=== PATIENT | female | born 1995 | race Caucasian/White ===

== ENCOUNTER 2020-12-02 05:46 | Emergency (ER) | payer BC ==
[2020-12-02] MEDS ORDERED: IBUPROFEN 400 MG TAB ONE (06:34)
[2020-12-02] MEDS ORDERED: ONDANSETRON 4 MG/2 ML VIAL ONE (06:54)
[2020-12-02 07:01] LABS: Hematocrit 40.6 % (36.0-45.0); RBC Red Blood Cell Count 4.54 M/uL (3.86-4.86)
[2020-12-02 07:02] LABS: Absolute Lymphocytes (CBC) 0.9 K/uL (0.7-4.9); Basophils % 0.3 % (0-1.3); Lymphocytes % 8.8 % (15.3-44.8); MPV 7.3 fL (7.6-11.3)
[2020-12-02 07:14] LABS: ALT/SGPT 51 U/L (12-78); AST/SGOT 20 U/L (15-37); Albumin 3.9 g/dL (3.4-5.0); Alkaline Phosphatase 75 U/L (45-117); BUN Blood Urea Nitrogen 7 mg/dL (7-18); Bicarbonate 25 mmol/L (21-32); Bilirubin Direct 0.1 mg/dL (0-0.2); Bilirubin Total 0.7 mg/dL (0.2-1.0); C-Reactive Protein 8.38 mg/L (<3.00); Ferritin 162.8 ng/mL (8-388); Glucose Level 125 mg/dL (74-106); Lipase 93 U/L (73-393); Potassium 3.6 mmol/L (3.5-5.1); Protein, Total 7.6 g/dL (6.4-8.2); Sodium Level 136 mmol/L (136-145); Troponin (Emerg Dept Use Only) < 0.02 ng/mL (0.0-0.045)
--- NOTE | 2020-12-02 07:15 | RAD REPORT ---
EXAM DESCRIPTION: RAD - Chest Single View - 12/02/2020 6:18 am CLINICAL HISTORY: DYSPNEA COMPARISON: CHEST SINGLE VIEW dated 05/06/2013 FINDINGS: No evidence of edema or pneumonia. The heart size is within normal limits.No acute osseous abnormality. No significant pleural effusions or pneumothorax. IMPRESSION: No acute cardiopulmonary disease.
[2020-12-02 07:53] LABS: SARS-COV-2 RT PCR NEGATIVE (NEGATIVE)
[2020-12-02 07:57] LABS: Protime INR 1.06
[2020-12-02 08:32] LABS: Urine Blood Negative (Negative); Urine Glucose Negative (Negative); Urine Protein Negative (Negative); Urine Specific Gravity 1.015 (1.005-1.030)
[2020-12-02 08:59] LABS: Urine Specific Gravity/Preg 1.015 (1.005-1.030)
--- NOTE | 2020-12-02 09:05 | RAD REPORT ---
EXAM DESCRIPTION: CT - Chest For Pe Angio - 12/02/2020 8:56 am CLINICAL HISTORY: DYSPNEA COMPARISON: No comparisons FINDINGS: Chest Wall: No suspicious thyroid nodules or pathologic lymphadenopathy. Lungs: No acute abnormality. Pleura: No significant effusions or pneumothorax. Mediastinum/beni: No pathologic lymphadenopathy. Pulmonary arteries/Aorta: No filling defect identified. No aortic aneurysm. Heart: No significant pericardial effusion. Normal heart size. Upper abdomen: Hepatic steatosis. Bones: No acute abnormality. IMPRESSION: Negative for pulmonary embolism. No acute findings within the chest.
--- NOTE | 2020-12-02 09:17 | EDPHYS ---
Physician Documentation [facility] Name: Ade Galeas Age: 24 yrs Sex: Female : 1995 Arrival Date: 12/02/2020 Time: 05:46 Bed Treatment Private MD: ED Physician Claudio Romero HPI: 12/02 06:07 This 24 yrs old Female presents to ER via Ambulatory with complaints of kb Breathing Difficulty. 06:07 The patient has not experienced similar symptoms in the past. The patient has not kb recently seen a physician. 06:08 The patient or guardian reports cough, that is intermittent, described as mild, kb difficulty breathing, flu symptoms, low-grade fever. Onset: The symptoms/episode began/occurred this morning, at 04:00. Severity of symptoms: At their worst the symptoms were moderate, in the emergency department the symptoms are unchanged. Modifying factors: The symptoms are alleviated by nothing, the symptoms are aggravated by nothing. Associated signs and symptoms: Pertinent positives: fever, Pertinent negatives: chest pain, diarrhea, ear ache, nausea, rhinorrhea, sore throat, vomiting. 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 - Social history:: Smoking status: Patient denies any tobacco usage or history of. ROS: 06:06 Cardiovascular: Negative for chest pain, palpitations, and edema. kb 06:06 Constitutional: Positive for body aches, chills, malaise. 06:06 Respiratory: Positive for cough, dyspnea on exertion, shortness of breath, Negative for hemoptysis, orthopnea, pleurisy, sputum production, wheezing. 06:06 Neuro: Positive for headache. 06:06 All other systems are negative. Exam: 06:06 Constitutional: This is a well developed, well nourished patient who is awake, alert, kb and in no acute distress. Head/Face: Normocephalic, atraumatic. ENT: Moist Mucous membranes Cardiovascular: Regular rate and rhythm with a normal S1 and S2. No gallops, murmurs, or rubs. No pulse deficits. Skin: Warm, dry with normal turgor. Normal color. MS/ Extremity: Pulses equal, no cyanosis. Neurovascular intact. Full, normal range of motion. Neuro: Awake and alert, GCS 15, oriented to person, place, time, and situation. Moves all extremities. Normal gait. Psych: Awake, alert, with orientation to person, place and time. Behavior, mood, and affect are within normal limits. 06:06 Respiratory: mild respiratory distress is noted, Respirations: tachypnea, Breath sounds: are clear throughout. Vital Signs: 06:04 BP 145 / 85; Pulse 144; Resp 22; Temp 102.4(TE); Pulse Ox 100% on R/A; Weight 127.01 kg lp1 (R); Height 5 ft. 5 in. (165.10 cm); 06:05 Temp 102.5(O); lp1 08:05 BP 134 / 75; Pulse 112; Resp 20 S; Temp 100.6(O); Pulse Ox 98% on R/A; aa5 09:41 Pulse 110; Resp 18 S; Temp 98.5(O); Pulse Ox 99% on R/A; aa5 06:04 Body Mass Index 46.59 (127.01 kg, 165.10 cm) lp1 MDM: 06:04 Patient medically screened. 06:07 Data reviewed: vital signs, nurses notes. Data interpreted: Pulse oximetry: on room air kb is 100 %. Interpretation: normal. 09:16 Counseling: I had a detailed discussion with the patient and/or guardian regarding: the kb historical points, exam findings, and any diagnostic results supporting the discharge/admit diagnosis, lab results, radiology results, the need for outpatient follow up, a family practitioner, to return to the emergency department if symptoms worsen or persist or if there are any questions or concerns that arise at home. 12/02 06:06 Order name: COVID-19 : Document "Date of Symptom Onset" if Symptomatic. 12/02 06:06 Order name: BMP kb 12/02 06:06 Order name: C-Reactive Protein 12/02 06:06 Order name: CBC with Diff 12/02 06:06 Order name: D-Dimer 12/02 06:06 Order name: Ferritin kb 12/02 06:06 Order name: Flu kb 12/02 06:06 Order name: LFT's kb 12/02 06:06 Order name: Lactate kb 12/02 06:06 Order name: Lipase kb 12/02 06:06 Order name: PT-INR; Complete Time: 08:03 kb 12/02 06:06 Order name: Procalcitonin; Complete Time: 07:50 kb 12/02 06:06 Order name: Ptt, Activated; Complete Time: 08:03 kb 12/02 06:06 Order name: Troponin (emerg Dept Use Only); Complete Time: 07:25 kb 12/02 06:06 Order name: Chest Single View XRAY; Complete Time: 07:25 kb 12/02 06:06 Order name: Basic Metabolic Panel; Complete Time: 07:25 EDMS 12/02 06:06 Order name: C-Reactive Protein; Complete Time: 07:25 EDMS 12/02 06:06 Order name: CBC with Automated Diff; Complete Time: 07:31 EDMS 12/02 06:06 Order name: D-Dimer; Complete Time: 08:03 EDMS 12/02 06:06 Order name: Ferritin; Complete Time: 07:25 EDMS 12/02 06:06 Order name: Liver (Hepatic) Function; Complete Time: 07:25 EDMS 12/02 06:07 Order name: Lactate; Complete Time: 07:25 EDMS 12/02 06:07 Order name: Lipase; Complete Time: 07:25 EDMS 12/02 07:53 Order name: COVID-19/FLU A+B; Complete Time: 07:54 EDMS 12/02 08:03 Order name: CT Chest For PE Angio; Complete Time: 09:10 kb 12/02 08:31 Order name: Urine Dipstick-Ancillary; Complete Time: 08:40 EDMS 12/02 08:32 Order name: Urine --Ancillary (enter results); Complete Time: 09:10 aa5 12/02 06:06 Order name: EKG; Complete Time: 06:07 kb 12/02 06:06 Order name: Droplet/Contact Precautions; Complete Time: 06:09 kb 12/02 06:06 Order name: EKG - Nurse/Tech; Complete Time: 08:32 kb 12/02 06:06 Order name: IV Start; Complete Time: 06:30 kb 12/02 06:06 Order name: Labs collected and sent; Complete Time: 06:42 kb 12/02 06:06 Order name: O2 Per Protocol; Complete Time: 06:30 kb 12/02 06:06 Order name: O2 Sat Monitoring; Complete Time: 06:30 kb 12/02 07:32 Order name: Vital Signs; Complete Time: 08:07 kb 12/02 08:32 Order name: Urine Test (obtain specimen); Complete Time: 08:32 aa5 Administered Medications: 06:10 Drug: Ibuprofen 800 mg Route: PO; lp1 06:40 Drug: Zofran (Ondansetron) 4 mg Route: IVP; Site: left antecubital; lp1 Disposition: 12/03 07:11 Co-signature as Attending Physician, Claudio Romero MD I agree with the assessment and josh plan of care. Disposition Summary: 12/02/20 09:16 Discharge Ordered Location: Home kb Condition: Stable kb Diagnosis - Coronavirus infection, unspecified kb Followup: kb - With: Emergency Department - When: As needed - Reason: Worsening of condition Followup: kb - With: Private Physician - When: 2 - 3 days - Reason: Recheck today's complaints, Continuance of care, Re-evaluation by your physician Discharge Instructions: - Discharge Summary Sheet kb - Viral Respiratory Infection, [id number] kb - COVID-19 kb Forms: - Medication Reconciliation Form kb - Thank You Letter kb - Work release form kb - Antibiotic Education kb - Prescription Opioid Use kb Signatures: Dispatcher [employer] EDRI Lynn Chandra, WHITING CAN WORKER-C WHITING CAN WORKER-Claudio Fair MD MD cha Calderon, Audri, RN RN aa5 Sophy Busby, RN RN lp1 Corrections: (The following items were deleted from the chart) 12/02 07:03 06:06 CORONAVIRUS ordered. EDMS EDMS 07:03 06:06 Influenza Screen (A ordered. EDMS EDMS 08:32 06:06 Crawford ordered. kb aa5
--- NOTE | 2020-12-02 09:17 | ER ---
Nurse's Notes [facility] Name: Ade Galeas Age: 24 yrs Sex: Female : 1995 Arrival Date: 12/02/2020 Time: 05:46 Bed Treatment Private MD: Diagnosis: Coronavirus infection, unspecified Presentation: 12/02 06:01 Chief complaint: Patient states: At 0400 this morning, I started shaking lp1 uncontrollably, at work; Reports difficulty breathing, reports pain on breathing. Coronavirus screen: Client denies travel out of the [place] in the last 14 days. chills, cough unrelated to allergies, fatigue, fever, headache, shortness of breath. Ebola Screen: No symptoms or risks identified at this time. Risk Assessment: Do you want to hurt yourself or someone else? Patient reports no desire to harm self or others. Onset of symptoms was December 02, 2020 at 04:00. 06:01 Method Of Arrival: Ambulatory lp1 06:01 Acuity: [place] 3 lp1 06:04 Initial Sepsis Screen: Does the patient meet any 2 criteria? Temp <36.0*C (96.8*F)) or lp1 > 38.3*C (100.9*F). HR > 90 bpm. Does the patient have a suspected source of infection? Yes: Productive cough/pneumonia. Triage Assessment: 06:00 Respiratory: Reports shortness of breath pain with respiration. 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 - Social history:: Smoking status: Patient denies any tobacco usage or history of. Screenin:04 Abuse screen: Denies threats or abuse. Denies injuries from another. Nutritional lp1 screening: No deficits noted. Tuberculosis screening: No symptoms or risk factors identified. Fall Risk None identified. Assessment: 06:00 General: Appears ill, Behavior is appropriate for age. Pain: Complains of pain in chest lp1 Aggravated by on respirations. Neuro: Level of Consciousness is awake, alert, obeys commands, Oriented to person, place, time, situation. Cardiovascular: Patient's skin is warm and dry. Respiratory: Airway is patent Trachea midline Respiratory effort is even, Breath sounds are clear bilaterally. the patient has mild shortness of breath. GI: No signs and/or symptoms were reported involving the gastrointestinal system. : No signs and/or symptoms were reported regarding the genitourinary system. EENT: No signs and/or symptoms were reported regarding the EENT system. Derm: Skin is intact, Skin is dry, Skin is normal. Musculoskeletal: No deficits noted. 06:35 Reassessment: Verbal order from Provider Zofran 4mg IV now; Patient currently vomiting. lp1 08:05 Reassessment: Patient is alert, oriented x 3, equal unlabored respirations, skin aa5 warm/dry/pink. 09:40 Reassessment: Patient is alert, oriented x 3, equal unlabored respirations, skin aa5 warm/dry/pink. Vital Signs: 06:04 BP 145 / 85; Pulse 144; Resp 22; Temp 102.4(TE); Pulse Ox 100% on R/A; Weight 127.01 kg lp1 (R); Height 5 ft. 5 in. (165.10 cm); 06:05 Temp 102.5(O); lp1 08:05 BP 134 / 75; Pulse 112; Resp 20 S; Temp 100.6(O); Pulse Ox 98% on R/A; aa5 09:41 Pulse 110; Resp 18 S; Temp 98.5(O); Pulse Ox 99% on R/A; aa5 06:04 Body Mass Index 46.59 (127.01 kg, 165.10 cm) lp1 ED Course: 05:46 Patient arrived in ED. bp1 06:03 Triage completed. lp1 06:03 Arm band placed on right wrist. lp1 06:04 Lynn Chandra FNP-C [facility]. kb 06:04 Claudio Romero MD is Attending Physician. kb 06:06 Sophy Busby, JEMMA is Primary Nurse. lp1 06:18 Chest Single View XRAY In Process Unspecified. EDMS 06:25 Inserted saline lock: 20 gauge in left antecubital area, using aseptic technique. Blood lp1 collected. 06:42 COVID swab sent to lab. lp1 06:47 Patient has correct armband on for positive identification. lp1 08:56 CT Chest For PE Angio In Process Unspecified. EDMS 09:40 No provider procedures requiring assistance completed. IV discontinued, intact, aa5 bleeding controlled, No redness/swelling at site. Pressure dressing applied. Administered Medications: 06:10 Drug: Ibuprofen 800 mg Route: PO; lp1 06:40 Drug: Zofran (Ondansetron) 4 mg Route: IVP; Site: left antecubital; lp1 Outcome: 09:16 Discharge ordered by . kb 09:40 Discharged to home ambulatory. aa5 09:40 Condition: stable 09:40 Discharge instructions given to patient, Instructed on discharge instructions, follow up and referral plans. medication usage, Demonstrated understanding of instructions, follow-up care, medications, Prescriptions given X 2. 09:42 Patient left the ED. aa5 Signatures: Dispatcher [employer] EDDC Lynn Chandra, VANESSA-C GRISTMILL OPERATOR-Kirstie Connors, RN RN aa5 Sophy Busby, RN RN lp1 Nilam Mack bp1 Corrections: (The following items were deleted from the chart) 06:47 06:00 Neuro: Level of Consciousness is awake, alert, obeys commands, Oriented to lp1 person, place, time, situation, lp1 06:47 06:00 Respiratory: Airway is patent Trachea midline Respiratory effort is even, Breath lp1 sounds are clear bilaterally. lp1 08:21 08:05 Pulse 112bpm; Resp 20bpm; Spontaneous; Pulse Ox 98% RA; Temp 100.6F Oral; aa5 aa5
[2020-12-02 10:02] VITALS: BP 134/75
[2020-12-02 10:10] VITALS: TEMP 98.5; O2SAT 99
--- NOTE | 2020-12-02 13:00 | EKG ---
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
== END 2020-12-02 09:42 | disposition home or self-care (01) ==
LOC: ER 05:46
DX: U07.1 COVID-19 (principal)
CPT/HCPCS: 93005; 85025; 80048; 36415; 81025; 85610; 85379; 80076; 83605; 85730; 81003; 84484; 82728; 83690; 84145; 0240U; 86140; 71275; 71045; 96374; 99284; Q9967; J2405

== ENCOUNTER 2021-11-25 06:27 | Emergency (ER) | payer OTHER, BC ==
[2021-11-25] MEDS ORDERED: ACETAMINOPHEN 500 MG TAB ONE (07:36)
--- NOTE | 2021-11-25 09:52 | EDPHYS ---
Physician Documentation [facility] Name: Ade Galeas Age: 25 yrs Sex: Female : 1995 Arrival Date: 11/25/2021 Time: 06:31 Bed 15 Private MD: ED Physician Paco Islas HPI: 11/25 07:32 This 25 yrs old Female presents to ER via Ambulatory with complaints of Fever, kdr Shortness Of Breath, Weakness. 07:33 Patient began feeling poorly last evening. She has had fever, chills, and general kdr malaise. Sore throat she states that she feels like she has COVID again. She had COVID about a year ago. He has no other associated symptoms. She is alert and oriented and appropriate. She is nontoxic and not requiring emergent intervention at this time.. Onset: The symptoms/episode began/occurred acutely, last night. Severity of symptoms: At their worst the symptoms were mild in the emergency department the symptoms are unchanged. The patient has not experienced similar symptoms in the past. The patient has not recently seen a physician. 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 - Social history:: Smoking status: Patient denies any tobacco usage or history of. ROS: 07:33 Constitutional: Negative for weight loss, does complain of fever and chills Eyes: kdr Negative for injury, pain, redness, and discharge, Neck: Negative for injury, pain, and swelling, Cardiovascular: Negative for chest pain, palpitations, and edema, Abdomen/GI: Negative for abdominal pain, nausea, vomiting, diarrhea, and constipation, Back: Negative for injury and pain, : Negative for injury, bleeding, discharge, and swelling, MS/Extremity: Negative for injury and deformity, Skin: Negative for injury, rash, and discoloration, Neuro: Negative for headache, weakness, numbness, tingling, and seizure activity. Psych: Negative for depression, anxiety, suicide ideation, homicidal ideation, and hallucinations, Allergy/Immunology: Negative for hives, rash, and allergies, Endocrine: Negative for neck swelling, polydipsia, polyuria, polyphagia, and marked weight changes, Hematologic/Lymphatic: Negative for swollen nodes, abnormal bleeding, and unusual bruising. 07:33 Respiratory: Positive for cough, with no reported sputum, Negative for dyspnea on exertion, hemoptysis, orthopnea, pleurisy. 07:33 Abdomen/GI: Positive for nausea, Negative for vomiting, diarrhea, constipation, abdominal cramps, abdominal distension, anorexia, dysphagia, hematemesis, black/tarry stool, rectal pain, rectal bleeding. Exam: 07:33 Constitutional: This is a well developed, well nourished patient who is awake, alert, kdr and in no acute distress. Head/Face: Normocephalic, atraumatic. Eyes: Pupils equal round and reactive to light, extra-ocular motions intact. Lids and lashes normal. Conjunctiva and sclera are non-icteric and not injected. Cornea within normal limits. Periorbital areas with no swelling, redness, or edema. Neck: Trachea midline, no thyromegaly or masses palpated, and no cervical lymphadenopathy. Supple, full range of motion without nuchal rigidity, or vertebral point tenderness. No Meningismus. Chest/axilla: Normal chest wall appearance and motion. Nontender with no deformity. No lesions are appreciated. Cardiovascular: Regular rate and rhythm with a normal S1 and S2. No gallops, murmurs, or rubs. Normal PMI, no JVD. No pulse deficits. Respiratory: Lungs have equal breath sounds bilaterally, clear to auscultation and percussion. No rales, rhonchi or wheezes noted. No increased work of breathing, no retractions or nasal flaring. Abdomen/GI: Soft, non-tender, with normal bowel sounds. No distension or tympany. No guarding or rebound. No evidence of tenderness throughout. Back: No spinal tenderness. No costovertebral tenderness. Full range of motion. Skin: Warm, dry with normal turgor. Normal color with no rashes, no lesions, and no evidence of cellulitis. MS/ Extremity: Pulses equal, no cyanosis. Neurovascular intact. Full, normal range of motion. Neuro: Awake and alert, GCS 15, oriented to person, place, time, and situation. Cranial nerves II-XII grossly intact. Motor strength 5/5 in all extremities. Sensory grossly intact. Cerebellar exam normal. Normal gait. Psych: Awake, alert, with orientation to person, place and time. Behavior, mood, and affect are within normal limits. Vital Signs: 07:04 BP 117 / 71; Pulse 134; Resp 24 S; Temp 102.9(O); Pulse Ox 97% on R/A; Weight 131.54 kg bb (R); Height 5 ft. 6 in. (167.64 cm) (R); Pain 2/10; 09:40 BP 123 / 70; Pulse 110; Resp 18; Temp 98.9(TE); Pulse Ox 100% ; Pain 3/10; jh6 07:04 Body Mass Index 46.81 (131.54 kg, 167.64 cm) MDM: 07:33 Data reviewed: vital signs, nurses notes, lab test result(s), radiologic studies. kdr Counseling: I had a detailed discussion with the patient and/or guardian regarding: the historical points, exam findings, and any diagnostic results supporting the discharge/admit diagnosis, lab results, radiology results, the need for outpatient follow up. 09:51 Patient medically screened. kdr 11/25 06:47 Order name: SARS-COV-2 RT PCR (Document "Date of Onset" if Symptomatic); Complete Time: rn 09:46 11/25 06:47 Order name: Flu; Complete Time: 08:24 rn 11/25 06:47 Order name: Strep; Complete Time: 08:24 rn 11/25 08:08 Order name: Throat Culture EDMS Administered Medications: 07:29 Drug: Tylenol 1000 mg Route: PO; [facility] 09:58 Follow up: Response: Temperature is decreased [facility] Disposition Summary: 11/25/21 09:51 Discharge Ordered Location: Home kdr Problem: new kdr Symptoms: have improved kdr Condition: Stable kdr Diagnosis - Fever, unspecified kdr - SARS-associated coronavirus as the cause of diseases classified elsewhere kdr Followup: kdr - With: Private Physician - When: 2 - 3 days - Reason: If symptoms return, Further diagnostic work-up, Recheck today's complaints, Continuance of care, Re-evaluation by your physician Discharge Instructions: - Discharge Summary Sheet kdr - Fever, Adult kdr - COVID-19 kdr - 10 Things You Can Do to Manage Your COVID-19 Symptoms at Home - [facility] kdr - Viral Illness, Adult kdr - COVID-19: Quarantine vs. Isolation - [facility] kdr - Prevent the Spread of COVID-19 if You Are Sick - [facility] kdr Forms: - Medication Reconciliation Form kdr - Thank You Letter kdr - Work release form jh6 Signatures: Dispatcher [employer] Paco Noyola MD MD kdr Ballard, Brenda RN RN Lorin Costello RN RN jh6
--- NOTE | 2021-11-25 09:52 | ER ---
Nurse's Notes [facility] Name: Ade Galeas Age: 25 yrs Sex: Female : 1995 Arrival Date: 11/25/2021 Time: 06:31 Bed 15 Private MD: Diagnosis: Fever, unspecified;SARS-associated coronavirus as the cause of diseases classified elsewhere Presentation: 11/25 07:04 Chief complaint: Patient states: she thinks she has Covid is SOB with fever since bb yesterday afternoon. Coronavirus screen: fever, shortness of breath. Ebola Screen: No symptoms or risks identified at this time. Initial Sepsis Screen: Does the patient meet any 2 criteria? RR > 20 per min. Temp <36.0*C (96.8*F)) or > 38.3*C (100.9*F). HR > 90 bpm. Yes Does the patient have a suspected source of infection? Yes: Productive cough/pneumonia. Risk Assessment: Do you want to hurt yourself or someone else? Patient reports no desire to harm self or others. Onset of symptoms was November 24, 2021. 07:04 Method Of Arrival: Ambulatory 07:04 Acuity: [place] 3 Triage Assessment: 07:30 Respiratory: Onset: The symptoms/episode began/occurred yesterday. [facility] 08:00 Respiratory: the patient has mild shortness of breath. 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 - Social history:: Smoking status: Patient denies any tobacco usage or history of. Screenin:25 Abuse screen: Denies threats or abuse. Nutritional screening: No deficits noted. 6 Tuberculosis screening: No symptoms or risk factors identified. Fall Risk None identified. Assessment: 07:25 General: Appears in no apparent distress. uncomfortable, Behavior is calm, cooperative. 6 Pain: Complains of pain in face Pain currently is 5 out of 10 on a pain scale. Quality of pain is described as dull. Cardiovascular: Capillary refill < 3 seconds Clubbing of nail beds is absent JVD is absent Pulses are all present. Rhythm is regular Chest pain is denied. Respiratory: No deficits noted. Airway is patent Trachea midline Respiratory effort is even, unlabored, Breath sounds are clear. 09:41 Reassessment: Patient and/or family updated on plan of care and expected duration. Pain jh6 level reassessed. Patient is alert, oriented x 3, equal unlabored respirations, skin warm/dry/pink. Patient states symptoms have improved. Vital Signs: 07:04 BP 117 / 71; Pulse 134; Resp 24 S; Temp 102.9(O); Pulse Ox 97% on R/A; Weight 131.54 kg bb (R); Height 5 ft. 6 in. (167.64 cm) (R); Pain 2/10; 09:40 BP 123 / 70; Pulse 110; Resp 18; Temp 98.9(TE); Pulse Ox 100% ; Pain 3/10; jh6 07:04 Body Mass Index 46.81 (131.54 kg, 167.64 cm) ED Course: 06:31 Patient arrived in ED. [facility] 07:07 Triage completed. bb 07:07 Arm band placed on Patient placed in an exam room, on a stretcher, on pulse oximetry. Family accompanied patient. 07:14 Lorin Costello, RN is Primary Nurse. 6 07:23 Paco Islas MD is Attending Physician. kdr 07:26 COVID swab sent to lab. Flu and/or RSV swab sent to lab. Strep swab sent to lab. 6 07:30 Bed in low position. Call light in reach. Side rails up X 1. Adult w/ patient. jh6 09:42 No provider procedures requiring assistance completed. jh6 09:59 Patient did not have IV access during this emergency room visit. 6 Administered Medications: 07:29 Drug: Tylenol 1000 mg Route: PO; 6 09:58 Follow up: Response: Temperature is decreased 6 Medication: 09:59 VIS not applicable for this client. 6 Outcome: 09:51 Discharge ordered by . kdr 09:59 Discharged to home ambulatory. 6 09:59 Condition: improved 09:59 Discharge instructions given to patient, family, Instructed on discharge instructions, Demonstrated understanding of instructions. 09:59 Patient left the ED. jh6 Signatures: Paco Islas MD MD [facility] Jennifer Stinson RN RN Merry Davis Jennifer, RN RN jh6
[2021-11-25 10:25] VITALS: BP 123/70; TEMP 98.9; O2SAT 100
== END 2021-11-25 09:59 | disposition home or self-care (01) ==
LOC: ER 06:27
DX: U07.1 COVID-19 (principal)
CPT/HCPCS: 87070; 87081; 87804 ×2; 99283; U0003